=== PATIENT | female | born 1985 | race Caucasian/White ===

== ENCOUNTER 2020-12-09 02:40 | Inpatient (IN) | payer OTHER, SELFPAY ==
[2020-12-09] VITALS (68 sets, daily range): BP systolic 70–142; BP diastolic 26–95; PULSE 53–107; RESP 16; TEMP 36.4–36.6; O2SAT 93–100; BMI 37.0
--- NOTE | 2020-12-09 05:30 | LDADM ---
This patient, Naomie Don, was admitted to Labor/Delivery/Recovery 106 on 12/09/20 at 02:40. Plans for labor, pain management and were discussed with patient. Patient/family oriented to hospital policies and general routines including ID bracelet, bed and alarms, visiting hours, pain management, procedures, bathroom and other care routines, personal items, smoking policy, room service/diet and guest tray routines, infant security routines, and visiting hours. Patient/Family are encouraged to report perceived risks to care and to ask questions if they do not understand what they are told or what they should do. See OBIX for further documentation.
[2020-12-09] MEDS: LACTATED RINGERS 1,000 ML 125 ML IV CONT ×2 (05:44→06:46)
[2020-12-09 05:46] LABS: Basophils Percent Auto 0.2 % (0.2-1.2); Eosinophils Absolute Auto 0.2 K/mm3 (0-0.3); Eosinophils Percent Auto 1.3 % (0-4.4); Hematocrit 33.9 % (37.0-47.0); Hemoglobin 11.6 g/dL (12.0-15.0); Immature Granulocyte Absolute 0.07 K/mm3 (0.00-0.031); Immature Granulocyte Percent A 0.5 % (0-0.5); Lymphocytes Absolute Auto 2.87 K/mm3 (0.9-3.2); Lymphocytes Percent Auto 21.3 % (18.3-44.2); Mean Corpuscular HGB Conc 34.2 g/dl (32-36); Mean Corpuscular Hemoglobin 30.3 pg (26-34); Mean Corpuscular Volume 88.5 fl (80-100); Mean Platelet Volume 10.4 fl (7.4-10.4); Monocytes Absolute Auto 0.9 K/mm3 (0.1-0.6); Monocytes Percent Auto 6.8 % (2.6-8.5); Neutrophils Absolute Auto 9.4 K/mm3 (1.3-6.7); Neutrophils Percent Auto 69.9 % (45.5-73.1); Platelet Count Result 215 k/mm3 (150-375); Red Blood Count 3.83 M/mm3 (4.2-5.4); Red Cell Distribution Width 12.6 % (11.5-14.5); White Blood Count 13.5 K/mm3 (4.5-10.0)
--- NOTE | 2020-12-09 06:40 | P.PNAN_ITS ---
Anes - Initial Pre Proc Eval Procedure: labor epidural Date/Time: 12/09/20 06:40 Surgeon: Jose Guadalupe Melara MD Pre Op Diagnosis: labor pain Pre Op Diagnosis: contractions Patient Data Age: 35 Gender: F Height: 1.6 m Weight: 95 kg Last Vital Signs Pulse 59 L 12/09/20 06:39 BP 120/71 12/09/20 06:39 Pulse Ox 100 12/09/20 06:37 Allergies Allergy/AdvReac Type Severity Reaction Status Date / Time No Known Allergies Allergy Verified 12/05/20 13:59 Home Medications Medication Instructions Recorded Confirmed Type PNV cmb#95-ferrous fumarate-FA 1 tablet PO DAILY 12/05/20 12/05/20 History [] aspirin 81 mg PO DAILY 12/05/20 12/05/20 History cetirizine [Zyrtec] 10 mg PO DAILY 12/05/20 12/05/20 History escitalopram oxalate [Lexapro] 20 mg PO DAILY 12/05/20 12/05/20 History Laboratory Tests 12/09/20 12/09/20 05:41 05:41 WBC 13.5 K/mm3 H K/mm3 (4.5-10.0) RBC 3.83 M/mm3 L M/mm3 (4.2-5.4) Hgb 11.6 g/dL L g/dL (12.0-15.0) Hct 33.9 % L % (37.0-47.0) MCV 88.5 fl fl (80-100) MCH 30.3 pg pg (26-34) MCHC 34.2 g/dl g/dl (32-36) RDW 12.6 % % (11.5-14.5) Plt Count 215 k/mm3 k/mm3 (150-375) MPV 10.4 fl fl (7.4-10.4) Immature Gran % (Auto) 0.5 % % (0-0.5) Neut % (Auto) 69.9 % % (45.5-73.1) Lymph % (Auto) 21.3 % % (18.3-44.2) [place] % (Auto) 6.8 % % (2.6-8.5) Eos % (Auto) 1.3 % % (0-4.4) Baso % (Auto) 0.2 % % (0.2-1.2) Lymph # (Auto) 2.87 K/mm3 K/mm3 (0.9-3.2) [place] # (Auto) 0.9 K/mm3 H K/mm3 (0.1-0.6) Eos # (Auto) 0.2 K/mm3 K/mm3 (0-0.3) Baso # (Auto) 0.0 K/mm3 K/mm3 (0.0-0.1) Abs Immat Gran (auto) 0.07 K/mm3 H K/mm3 (0.00-0.031) Absolute Neuts (auto) 9.4 K/mm3 H K/mm3 (1.3-6.7) Absolute Nucleated RBC 0.0 K/mm3 K/mm3 (0.0-0.012) Nucleated RBC % 0.0 % % (0.0-0.2) RPR Pending Patient hx anesthesia problems: none Family hx anesthesia problems: none [facility] Family History Family History (Updated 12/05/20 @ 12:45 by Shannen Carrasquillo RN) Sibling Tetralogy of Fallot Social History Social History Smoking status: Never smoker Substance use: never Gender identity (if verbalized by the patient): Female Spiritual care concerns: No Anes - Eval Final PreProcedure Day of Procedure 12/09/20 06:40 Patient weight: obese ASA classification: II Anesthesia type and monitoring: regional epidural Informed Consent: The patient's anesthetic plan and its attendant risks and benefits were discussed with the patient/family/POA. Questions were solicited and answers provided to the satisfaction of the patient/family/POA.
[2020-12-09 06:45] LABS: Rapid Plasma Reagin Non-Reactive (NonReactive)
--- NOTE | 2020-12-09 07:24 | WPDHPUPDATE1 ---
History and Physical Update Update Date/Time: 12/09/20 07:24 35 yo at 38w6d who presents in labor. She reports that her contractions started at 2300. She denies any leakage of fluid, vaginal bleeding. She endorses good movement. Her has been uncomplicated thus far. Pt has a history of PP preeclampsia and has been on ASA daily. A/P: 35 yo at 38w6d in labor cvx changed from 1 to 4 cm regular ctx on toco FHT cat 1 Rh+ GBS neg admit to L&D continuous EFM will augment with AROM and pitocin as needed History and Physical has been reviewed, including an updated exam of the patient. There are NO changes in the patient's condition. Risks, benefits, and alternatives have been discussed and questions answered. Patient agrees to proceed with procedure.
[2020-12-09] MEDS: OXYTOCIN 30 UNITS/NS 500 ML 30 UNITS/500 ML BAG IV CONT (08:01)
[2020-12-09] MEDS: ONDANSETRON INJ 4 MG/2 ML VIAL IV PUSH (10:21)
--- NOTE | 2020-12-09 12:33 | P.PCNOB_ITS ---
OB - Delivery Note Procedure Procedure: Patient pushed for a spontaneous vaginal delivery. The fetus was delivered atraumatically and placed on the maternal abdomen. The cord was clamped and cut after 1 minute of life. The cord was double clamped and cut and a segment of cord was collected for cord gases. Cord blood was collected for blood type and Coomb's testing. The placenta delivered spontaneously and was noted to be intact. The perineum was inspected and there was a 1st degree perineal laceration and a periurethral laceration. The lacerations were repaired with 3-0 vicryl in the usual fashion. The uterus was firm and good hemostasis was noted. The patient and fetus were stable in the delivery room. Intrapartal events: None Induction method: none Delivery augmentation: rupture of membranes Delivery monitor: external FHT Route of delivery: Episiotomy description: None Laceration Description: Periurethral and Perineal - 1st Degree Delivery repair: vicryl Specimen: No Quantitative Blood Loss (ml): 250 Anesthesia type: Epidural Disposition: floor () Complications: No immediate complications [place] Baby Date of : 12/09/20 Time of : 12:20 Weeks of gestation at delivery: 38 Infant gender: Male presentation: vertex position: Right Occiput Anterior Placenta delivery description: Spontaneous cord vessel description: 3 Vessels score one minute: 8 score five minutes: 9
[2020-12-09] MEDS: OXYTOCIN 30 UNITS/NS 500 ML 30 UNITS/500 ML BAG 125 UNITS IV CONT (12:43)
[2020-12-09] MEDS: IBUPROFEN 600 MG TABLET PO ×2 (14:39→21:30)
[2020-12-09] MEDS: WITCH HAZEL 40 PADS 1 PAD TOPICAL (14:39)
[2020-12-09] MEDS: BENZOCAINE 20% AER SPR (*SP) 56 GM CAN 1 SPRAY TOPICAL (14:39)
--- NOTE | 2020-12-09 15:05 | PC.NURSE ---
Patient transferred to post room #284 via wheelchair. Support person present. Oriented to unit, room, information board, rooming in, admission packet and security measures. Patient verbalizes understanding.
[2020-12-09] MEDS: ACETAMINOPHEN 325 MG TABLET 650 MG PO (18:50)
[2020-12-10 05:20] VITALS: BP 112/48; PULSE 73; RESP 16; TEMP 36.4; O2SAT 99
[2020-12-10] MEDS: IBUPROFEN 600 MG TABLET PO ×2 (05:26→11:49)
[2020-12-10 05:47] LABS: Hematocrit 31.9 % (37.0-47.0); Hemoglobin 10.6 g/dL (12.0-15.0)
--- NOTE | 2020-12-10 07:25 | PM.OBDSVD ---
DS: Admitting Diagnosis Admitting Diagnosis Admitting Diagnosis: Labor OB - DS: Summary OB Procedures : None OB Procedures Intrapartum: Spontaneous Vag Delivery OB Procedures: : None Status at Discharge Functional status at discharge: independent ambulation Overall status at discharge: patient is back to baseline Time Spent with Patient Time attestation: Total time spent providing and/or coordinating discharge services: Time spent: Less than 30 minutes Exam Const: General: comfortable and no acute distress Resp: Effort & Inspection: normal respiratory effort Auscultation: clear to auscultation bilaterally Cardio: Rate: regular rate GI: GI Palp: Yes Soft to palpation Auscultation: normal bowel sounds Other: Fundus firm below umbilicus Psych: Appearance: grossly normal Mental Status: mental status grossly normal Affect: normal affect DS: Data Data Completed and Pending Pending studies at discharge: Pending at discharge 12/09/20 12:24 Surgical [PTH] Routine Labs on day of discharge: Labs from last 24 hours 12/10/20 05:32 Hgb 10.6 L Hct 31.9 L Discharge Plan Discharge Discharging Clinician: Jose Guadalupe Melara Patient Disposition: Home, Self-Care Activity: as tolerated and pelvic rest Diet: regular Patient Instructions: Antibiotic Form, Vaginal Delivery (DC) Stand Alone Forms: General Discharge Information Follow-up/Referrals: Jose Guadalupe Melara MD [Physician] - 4 Weeks Discharge Medications: New acetaminophen [Mapap (acetaminophen)] 325 mg Tablet 650 mg PO Q6H PRN (Reason: Mild Pain (1-3) Or Headache) Qty: 30 RF: 0 ibuprofen 600 mg Tablet 600 mg PO Q6H PRN (Reason: Cramping) Qty: 30 RF: 0 Continued cetirizine [Zyrtec] 10 mg Tablet 10 mg PO DAILY RF: 0 escitalopram oxalate [Lexapro] 20 mg Tablet 20 mg PO DAILY RF: 0 PNV cmb#95-ferrous fumarate-FA [] 28 mg iron- 800 mcg Tablet 1 tablet PO DAILY RF: 0 Discontinued aspirin 81 mg Tablet 81 mg PO DAILY RF: 0 Date of admission: 12/09/20 02:40 Primary Care Provider: Thomas,Luciana Chang Admitting Provider: Jose Guadalupe Melara Attending physician on admission: Jose Guadalupe Melara Condition: Stable
[2020-12-10 07:45] VITALS: BP 100/50; PULSE 72; RESP 18; TEMP 36.7; O2SAT 98
--- NOTE | 2020-12-10 08:00 | PC.NURSE ---
PT introductions made and plan of care discussed per post , pain management, breast pumping, daily care activities. PT verbalized understanding of such care.
[2020-12-10] MEDS: ACETAMINOPHEN 325 MG TABLET 650 MG PO ×2 (09:04→15:36)
[2020-12-10] MEDS: MULTIVIT/MIN/PREN/FOL AC/IRON TABLET 1 TAB PO (09:06)
[2020-12-10] MEDS: DOCUSATE SODIUM 100 MG CAPSULE PO ×2 (09:06→15:37)
[2020-12-10 09:10] VITALS: PULSE 72; RESP 18; O2SAT 98
--- NOTE | 2020-12-10 11:10 | PC.NURSE ---
Consult with pt., mother states she wishes to pump and bottle feed as she has with other children. Mother is pumping without difficulties/discomfort with hospital pump. Reviewed breast pump care and usage, pumping schedule, nipple care, and collection and storage of breast milk. Encouraged [id number], breast massage and manual expression to stimulate supply. Mother voiced concerns with small volume pumping at this time, reviewed it may be a few days before milk transitions in, a few drops at this time is normal. Assessed patient for correct flange size, placement and draw. Patient verbalizes and demonstrates understanding of instructions.
[2020-12-10 12:30] VITALS: BP 110/59; PULSE 54; RESP 12; TEMP 36.8; O2SAT 97
--- NOTE | 2020-12-10 16:00 | PC.NURSE ---
PT received discharge instructions per protocol and used mom baby care guide and one to one discussion. PT has no barriers to learning noted and significant other present and a recipient of such instructions. PT verbalized understanding of such care.
--- NOTE | 2020-12-10 16:40 | PC.NURSE ---
PT discharged to home ambulatory accompanied by spouse and to waiting car. follow up appts confirmed
[2020-12-12 09:00] VITALS: BP 119/65; PULSE 78; RESP 20; TEMP 36.8; O2SAT 99
== END 2020-12-10 16:40 | disposition home or self-care (01) | DRG 807 ==
LOC: ANHLDR 05:13 → ANHOB2 15:10
PROVIDERS: Admitting Provider Student in an Organized Health Care Education/Training Program; PCP Nurse Practitioner Family; Visit Provider Student in an Organized Health Care Education/Training Program
DX: O77.0 Labor and delivery complicated by meconium in amniotic fluid (principal); Z37.0 Single live birth; Z3A.38 38 weeks gestation of pregnancy; O36.8330 Maternal care for abnormalities of the fetal heart rate or rhythm, third trimester, not applicable or unspecified; O70.0 First degree perineal laceration during delivery; O71.82 Other specified trauma to perineum and vulva; O99.214 Obesity complicating childbirth; E66.9 Obesity, unspecified; O99.344 Other mental disorders complicating childbirth; F41.8 Other specified anxiety disorders
CPT/HCPCS: 36415; 85014; 85018; 85025; 86592; 86850; 86900; 86901; 88307; A9270; J2405; J2590; J2795; J7120

== ENCOUNTER 2024-04-16 13:30 | Outpatient (RCR) | payer OTHER, SELFPAY ==
--- NOTE | 2024-03-14 17:57 | OPREHPOC ---
Outpatient Therapy Plan of Care This is a Multidisciplinary Plan of Care that may contain components documented by all disciplines (PT, OT, and ST.) PT Goal 1 Goal Pt will be independent in HEP Pt will verbalize understanding of diagnosis and prognosis Target Visit 5 PT Problem 2 PT Problem #2 Pain PT Goal 1 Goal Pt will report greatest pain level at 5/10 or less to improve ADLs and activities Target Visit 10 PT Goal 2 Goal Pt will report resolution of pain to return to PLOF Target Visit 20 PT Problem 3 PT Problem #3 Impaired Range of Motion PT Goal 1 Goal Pt will demo lumbar active flexion of 50% to improve functional mobility Target Visit 10 PT Goal 2 Goal Pt will demo lumbar active flexion of 75% to improve functional mobility Target Visit 20 PT Problem 4 PT Problem #4 Impaired Strength PT Goal 1 Goal Pt will demo core strength of 3+/5 of the TRAM to improve lumbopelvic stability Target Visit 10 PT Goal 2 Goal Pt will demo strength of 4/5 in all tested planes to improve lumbopelvic stability Target Visit 20
--- NOTE | 2024-03-14 18:00 | PTOPEVAL1 ---
Assessment and note entered by Ashley Abdi, PT Evaluation Information Assessment Status Evaluation Diagnosis low back pain ICD-10 Condition Codes (PT) Pain in low back M54.50,Weakness R53.1 Onset 3 years off and on Subjective Information Pt reports never had back issues before as had PT ce Vasquez but felt like that was more muscular at the time. Denies N/T and pain into LEs Pain has been off and on but this is different and the most severe. Feels more sacroiliitis doing laundry, bending, picking up things is painful. Reported Pain Level Pain Score 1: Self Report Assessment PT Clinical Summary Pt presents with history of back pain since her last three years ago. States pain has been on and off but this time feels different and is the worst it has been. Bending causes the greatest discomfort and limits her ability to take care of her family and household. She denies currently N/T but demo's (+)stright leg raise testing roslyn for nerve involvement. X-rays also demo L5 anterolisthesis, evaluation shows multiple levels of weakness and stability in the lumbopelvic core, and multple levels of poor flexibility and ROM in the hips. Pt will benefit from physical therapy to address deficits, improve pain, and thus improve function. Plan of Care Interventions Electrical Stimulation,Hot Pack/Cold Pack,Manual Therapy,Mechanical Traction,Neuro Re-education, Therapeutic Activities,Therapeutic Exercise,Self- Care/Home Management,Ultrasound,Other PT Services Indicated Yes Treatment Frequency and 1-2x weekly x 10 visits Duration These treatments will address the objective and functional deficits as defined above. The patient will be advanced safely and appropriately in order for the patient to progress towards his/her prior level of function. Additional exercises will be introduced and as well as a comprehensive home exercise program upon discharge, if needed, ?to ensure carryover of functional gains achieved in the clinic. This treatment plan has been reviewed and agreement upon by the patient.
--- NOTE | 2024-04-17 13:08 | PTOPPROG ---
Assessment and note entered by Ashley Abdi, PT Evaluation Information Assessment Status Progress Diagnosis low back pain ICD-10 Condition Codes (PT) Pain in low back M54.50,Weakness R53.1 abnormal posture, Sciatica LLE Onset 3 years off and on Subjective Information Back is doin a lot better, is 100% I can do anything I want . Cont to have sciatic nerve issue. Has increased pain in buttock anytime does activities Assessment PT Clinical Summary Pt has been attending therapy consistently for lumbar pain and radiculopathy. She shows significant progress regarding her lumbar ROM, and lumbopelvic core strength. She reports her back feeling 100% better%. She had a major turn around after an unfortunate trip to the emergency room due to back pain, but after application of medication at that time, her back has remained improved. However also since that time her pain and discomfort has localized more to the left buttock and into the LLE suggestive of sciatica component to her difficulty. Overall pt reports is able to do everything now but will have increased discomfort in the LLE and gluteal area after. Pt will benefit from continued therapy with a slight shift in focus to the hips and sciatic nerve area to continue improvement in order to reach overall goals of pain-free PLOF. Plan of Care Interventions Electrical Stimulation,Hot Pack/Cold Pack,Manual Therapy,Mechanical Traction,Neuro Re-education, Therapeutic Activities,Therapeutic Exercise,Self- Care/Home Management,Ultrasound,Other PT Services Indicated Yes Treatment Frequency and 1x weekly x 6 weeks focus on home program and Duration aggressive tissue work These treatments will address the objective and functional deficits as defined above. The patient will be advanced safely and appropriately in order for the patient to progress towards his/her prior level of function. Additional exercises will be introduced and as well as a comprehensive home exercise program upon discharge, if needed, ?to ensure carryover of functional gains achieved in the clinic. This treatment plan has been reviewed and agreement upon by the patient.
--- NOTE | 2024-05-30 17:09 | PTOPDC ---
Assessment and note entered by Ashley Abdi, PT Evaluation Information Assessment Status Discharge - Pt Not Present Diagnosis low back pain ICD-10 Condition Codes (PT) Pain in low back M54.50,Weakness R53.1 Onset 3 years off and on Subjective Information Back is doin a lot better, is 100% I can do anything I want . Cont to have sciatic nerve issue. Has increased pain in buttock anytime does activities Assessment PT Clinical Summary When last spoke to patient she was doing well. During therapy she presented to the ER x 1, received medications and had immediate improvement in back pain that sustained beyond that point. She was however having sciatica type symptoms and felt the shot she received in the ER may have irritated the sciatic nerve. She had been attending a massage therapist and received cupping techniques which appear to have greatly improved her sciatica symptoms. Pt has not returned to therapy but had been provided multiple home exercises and education on continued independent progression at last reevaluation. Pt requested discharge due to having met her goals. Plan of Care PT Services Indicated No
== END 2024-05-31 11:18 | disposition home or self-care (01) ==
LOC: ANHHIPT 13:30
PROVIDERS: PCP Physician Assistant Medical; Visit Provider Physician Assistant Medical
DX: M54.50 Low back pain, unspecified (principal); R53.1 Weakness
CPT/HCPCS: 97014; 97110; 97112; 97140; 97161; 97530; 97750; G0283